=== PATIENT | female | born 1985 | race Two or more races ===

== ENCOUNTER 2019-09-05 17:30 | Emergency (ER) | payer BC, OTHER ==
[~2019-09-05] VITALS: Ht 152.4 cm; Wt 72.6 kg
[2019-09-05 18:11] LABS: Basophils # (auto) 0.1 10 ^3/uL (0-0.2); Basophils % (auto) 0.7 % (0.0-2.0); Eosinophils # (auto) 0.1 10 ^3/uL (0-0.8); Eosinophils % (auto) 1.8 % (0.0-7.0); Hematocrit 40.7 % (36.0-46.0); Hemoglobin 13.7 g/dL (12.2-16.2); Lymphocytes # (auto) 2.7 10 ^3/uL (0.4-5.4); Lymphocytes % (auto) 33.8 % (10.0-50.0); Mean Corpuscular Hemoglobin 31.4 pg (28.0-32.0); Mean Corpuscular Hgb Conc. 33.6 g/dL (32.0-36.0); Mean Corpuscular Volume 93.5 fL (80.0-100.0); Monocytes # (auto) 0.5 10 ^3/uL (0-1.3); Monocytes % (auto) 5.7 % (0.0-12.0); Neutrophils # (auto) 4.6 10 ^3/uL (1.6-8.6); Nucleated Red Blood Cells % 0.1 %; Platelet Count (auto) 364 10^3/uL (140-450); Red Blood Cells 4.36 10^6/uL (4.0-5.20); Red Cell Distribution Width 12.8 % (11.8-14.3); White Blood Cell 7.9 10^3/uL (4.4-10.8)
[2019-09-05] MEDS ORDERED: ASPirin 81 mg TAB PO ONE (18:30)
[2019-09-05 18:32] LABS: Albumin 3.9 g/dL (3.4-5.0); Anion Gap 7 (5-15); Blood Urea Nitrogen 14 mg/dL (7-18); Calcium 8.9 mg/dL (8.5-10.1); Carbon Dioxide 25 mmol/L (21-32); Chloride 105 mmol/L (98-107); Glucose 108 mg/dL (74-106); Potassium 3.7 mmol/L (3.5-5.1); Sodium 137 mmol/L (136-145)
[2019-09-05 18:36] LABS: Alanine Aminotransferase 31 U/L (13-56); Alkaline Phosphatase 53 U/L (45-117); Aspartate Aminotransferase 14 U/L (15-37); BUN/Creatinine Ratio 24.6; Bilirubin, Total 0.4 mg/dL (0.2-1.0); GFR African American 156 mL/min; GFR Non-African American 129 mL/min; Total Protein 7.8 g/dL (6.4-8.2)
[2019-09-05 19:28] VITALS: BP 104/52
== END 2019-09-05 19:50 | disposition home or self-care (01) ==
LOC: ER 17:30
DX: R07.89 Other chest pain (principal); J45.909 Unspecified asthma, uncomplicated
CPT/HCPCS: 36415; 71045; 80053; 81025; 84484; 85025; 85379; 93005

== ENCOUNTER 2021-01-15 16:13 | Emergency (ER) | payer BC ==
[~2021-01-15] VITALS: Ht 152.4 cm; Wt 72.1 kg
[2021-01-15 21:05] LABS: Basophils # (auto) 0 10 ^3/uL (0-0.2); Basophils % (auto) 0.3 % (0.0-2.0); Eosinophils # (auto) 0.1 10 ^3/uL (0-0.8); Eosinophils % (auto) 1.3 % (0.0-7.0); Hematocrit 38.3 % (36.0-46.0); Hemoglobin 13.2 g/dL (12.2-16.2); Lymphocytes % (auto) 30.4 % (10.0-50.0); Mean Corpuscular Hemoglobin 32.1 pg (28.0-32.0); Mean Corpuscular Hgb Conc. 34.5 g/dL (32.0-36.0); Monocytes # (auto) 0.7 10 ^3/uL (0-1.3); Monocytes % (auto) 6.9 % (0.0-12.0); Neutrophils % (auto) 61.1 % (37.0-80.0); Red Blood Cells 4.12 10^6/uL (4.0-5.20); Red Cell Distribution Width 13.4 % (11.8-14.3); White Blood Cell 9.8 10^3/uL (4.4-10.8)
[2021-01-15 22:11] LABS: Urine Bacteria FEW /hpf (None Seen); Urine Blood TRACE /uL (Negative); Urine WBC <1 /hpf (0 - 5)
[2021-01-16 01:30] VITALS: BP 105/92
== END 2021-01-16 01:31 | disposition home or self-care (01) ==
LOC: ER 16:13
DX: O20.0 Threatened abortion (principal); J45.909 Unspecified asthma, uncomplicated; Z3A.01 Less than 8 weeks gestation of pregnancy
CPT/HCPCS: 36415; 76801; 76817; 81001; 84702; 85025

== ENCOUNTER 2024-10-29 01:56 | Emergency (ER) | payer BC ==
[~2024-10-29] VITALS: Ht 152.4 cm; Wt 72.7 kg
[2024-10-29 02:05] VITALS: BP 106/47; PULSE 85; RESP 18; TEMP 97.6; O2SAT 97
[2024-10-29 02:32] LABS: Basophils # (auto) 0 10 ^3/uL (0-0.2); Basophils % (auto) 0.4 % (0.0-2.0); Eosinophils # (auto) 0.1 10 ^3/uL (0-0.8); Eosinophils % (auto) 2.1 % (0.0-7.0); Hematocrit 36.8 % (36.0-46.0); Hemoglobin 12.4 g/dL (12.2-16.2); Mean Corpuscular Hemoglobin 31.3 pg (28.0-32.0); Mean Corpuscular Hgb Conc. 33.7 g/dL (32.0-36.0); Mean Corpuscular Volume 92.8 fL (80.0-100.0); Monocytes # (auto) 0.4 10 ^3/uL (0-1.3); Monocytes % (auto) 6.5 % (0.0-12.0); Neutrophils # (auto) 2.8 10 ^3/uL (1.6-8.6); Nucleated Red Blood Cells % 0.2 %; Platelet Count (auto) 305 10^3/uL (140-450); Red Blood Cells 3.96 10^6/uL (4.0-5.20); White Blood Cell 6.5 10^3/uL (4.4-10.8)
[2024-10-29 02:48] LABS: Alanine Aminotransferase 13 U/L (7-40); Albumin 4.1 g/dL (3.2-4.8); Alkaline Phosphatase 61 U/L (46-116); Anion Gap 6 (5-15); Aspartate Aminotransferase 9 U/L (13-40); BUN/Creatinine Ratio 20.4 (10.0-20.0); Blood Urea Nitrogen 10 mg/dL (9-23); Calcium 8.6 mg/dL (8.7-10.4); Carbon Dioxide 28 mmol/L (20-31); Chloride 107 mmol/L (98-107); Glucose 97 mg/dL (74-106); Lipase 37 U/L (12-53); Potassium 3.6 mmol/L (3.5-5.1); Sodium 141 mmol/L (136-145); Total Protein 6.3 g/dL (5.7-8.2)
[2024-10-29 03:35] LABS: Bilirubin, Total 0.3 mg/dL (0.2-1.0)
--- NOTE | 2024-10-29 03:38 | DVH ---
CHEST RADIOGRAPH Indication: cp Technique: Single frontal view of the chest was obtained Comparison: None IMPRESSION: Heart appears normal in size. The lungs appear clear without focal airspace opacity, effusion, or pn eumothorax
--- NOTE | 2024-10-29 05:44 | ED.PDOC ---
History of Present Illness HPI Comments 39 y/o obese F, with a history of asthma and lupus, presents with c/o chest pain. Patient states she was awakened suddenly by a shocking pain in her chest early this morning. Pain lasted a few seconds then spontaneously resolved. Patient reports no previous history of chest pain in the past. She denies any family history of cardiac disease. Patient is asymptomatic upon time of assessment. She denies any pain, shortness a breath, nausea, vomiting, diaphoresis or edema. 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 Moist mucous membranes.) Neck: Full Range of Motion, Normal Inspection Respiratory: Lungs Clear, No Accessory Muscle Use, No Respiratory Distress, Normal Breath Sounds Cardiovascular: No Edema, No JVD, Regular Rate/Rhythm Breast Exam: Deferred Gastrointestinal: Non Tender, Soft Genitalia: Deferred Pelvic: Deferred Rectal: Deferred Extremities: Normal inspection, Normal range of motion, Non-tender, No pedal edema Neurologic: Alert (Oriented x4), Normal Affect, Normal Mood, Other (Ambulatory) Cerebellar Function: NOT DONE Reflexes: NOT DONE Skin: Dry, Normal Color, Warm Lymphatic: NOT DONE Was a procedure done? Was a procedure done?: No EKG EKG : Comments Sinus rhythm, rate 77, normal intervals, normal axis, normal QRS, no ST/T changes. Differential Dx Considerations may include: Chest wall pain, ACS, OK, PE, anxiety, pneumonia, pneumothorax, neuropathic pa in, among others X-Ray, Labs, Meds, VS Vital Signs Date Time Temp Pulse Resp B/P (MAP) Pulse Ox O2 Delivery O2 Flow Rate FiO2 10/29/24 02:05 97.6 85 18 106/47 (66) 97 97.6 10/29/24 02:01 77 Lab Test 10/29/24 03:16 10/29/24 02:16 Range/Units Troponin I High Sensitivity < 3 L < 3 L </=34 ng/L White Blood Count 6.5 4.4-10.8 10^3/uL Red Blood Count 3.96 L 4.0-5.20 10^6/uL Hemoglobin 12.4 12.2-16.2 g/dL Hematocrit 36.8 36.0-46.0 % Mean Corpuscular Volume 92.8 80.0-100.0 fL Mean Corpuscular Hemoglobin 31.3 28.0-32.0 pg Mean Corpuscular Hemoglobin Concent 33.7 32.0-36.0 g/dL Red Cell Distribution Width 13.0 11.8-14.3 % Platelet Count 305 140-450 10^3/uL Mean Platelet Volume 7.5 6.9-10.8 fL Neutrophils (%) (Auto) 44.0 37.0-80.0 % Lymphocytes (%) (Auto) 47.0 10.0-50.0 % Monocytes (%) (Auto) 6.5 0.0-12.0 % Eosinophils (%) (Auto) 2.1 0.0-7.0 % Basophils (%) (Auto) 0.4 0.0-2.0 % Neutrophils # (Auto) 2.8 1.6-8.6 10 ^3/uL Lymphocytes # (Auto) 3.0 0.4-5.4 10 ^3/uL Monocytes # (Auto) 0.4 0-1.3 10 ^3/uL Eosinophils # (Auto) 0.1 0-0.8 10 ^3/uL Basophils # (Auto) 0 0-0.2 10 ^3/uL Nucleated Red Blood Cells 0.2 % Sodium Level 141 136-145 mmol/L Potassium Level 3.6 3.5-5.1 mmol/L Chloride Level 107 98-107 mmol/L Carbon Dioxide Level 28 20-31 mmol/L Anion Gap 6 5-15 Blood Urea Nitrogen 10 9-23 mg/dL Creatinine 0.49 L 0.550-1.02 mg/dL Glomerular Filtration Rate Calc 123 >90 mL/min BUN/Creatinine Ratio 20.4 H 10.0-20.0 Serum Glucose 97 74-106 mg/dL Calcium Level 8.6 L 8.7-10.4 mg/dL Total Bilirubin 0.3 0.2-1.0 mg/dL Aspartate Amino Transferase (AST) 9 L 13-40 U/L Alanine Aminotransferase (ALT) 13 7-40 U/L Alkaline Phosphatase 61 46-116 U/L B-Type Natriuretic Peptide 19.95 0-100 pg/mL Total Protein 6.3 5.7-8.2 g/dL Albumin 4.1 3.2-4.8 g/dL Lipase 37 12-53 U/L PROCEDURE(s): CXRP - CHEST PORTABLE REASON: cp ORDER NUMBER(s): [id number], ACCESSION NUMBER(s): [id number] CHEST RADIOGRAPH Indication: cp Technique: Single frontal view of the chest was obtained Comparison: None IMPRESSION: Heart appears normal in size. The lungs appear clear without focal airspace opacity, effusion, or pneumothorax X-Ray, Labs, Meds, VS Comment 39-year-old female with a history of asthma and SLE complaining of an episode of chest pain that lasted a few sec Vitals unremarkable Exam unremarkable Rhythm strip independently interpreted by me: Sinus rhythm, rate 77, no ectopy. Chest x-ray unremarkable CBC, metabolic panel, BNP and 2 serial troponins unremarkable Patient was chest pain free during her stay in the ED, so no acute treatment was indicated. Patient appears stable for discharge with close outpatient follow-up with her primary physician. Time of 1ST Reevaluation: 05:40 Reevaluation 1ST: Unchanged Patient Education/Counseling: Diagnosis, Need For Follow Up Family Education/Counseling: No Family Present Departure 1 Departure Time of Disposition: 05:54 Impression: Primary Impression: Chest pain with low risk for cardiac etiology Disposition: 01 HOME / SELF CARE / HOMELESS Condition: Stable Additional Instructions: Your blood tests, including screening test for heart attack and heart failure, were unremarkable. Your EKG was normal. Your chest x-ray was normal. Follow- up with your primary doctor in 1-2 days. Return to ER for persistent or worsening symptoms. Discharged With: Self Critical Care Note Critical Care Time?: No Stability Stability form required: No Heart Score Heart Score: Heart Score Response (Comments) Value History Slightly Suspicious 0 EKG Normal 0 Age <45 0 Risk Factors No known risk factors 0 Troponin Normal limit 0 Total 0 I personally scribed for RENETTA GRADY MD ([email or web address]) on 10/29/24 at 05:44. Electronically submitted by Gerry Burrows ([email or web address]). RENETTA GRADY MD October 29, 2024 05:44
--- NOTE | 2024-10-29 09:55 | ECG ---
[facility] Test Date: 2024-10-29 Test Time: 02:01:31 Pat Name: BEATA PECK Department: ED Room: Gender: F Pmp Project Manager: QUETA : 1985 Requested By: RENETTA CARDONA Order Number: [id number] Reading MD: Measurements Intervals [place] Rate: 77 P: 40 NC: 145 QRS: 50 QRSD: 84 T: 40 QT: 378 QTc: 428 Interpretive Statements Sinus rhythm Baseline wander in lead(s) V6 Please click the below link to view image of tracing.
== END 2024-10-29 06:06 | disposition home or self-care (01) ==
LOC: ER 01:56
DX: R07.9 Chest pain, unspecified (principal); J45.909 Unspecified asthma, uncomplicated; E66.9 Obesity, unspecified
CPT/HCPCS: 36415; 71045; 80053; 83690; 83880; 84484; 85025; 93005